=== PATIENT | female | born 1965 | race Caucasian/White ===

== ENCOUNTER 2018-08-17 08:52 | Emergency (ER) | payer MEDICAID ==
[~2018-08-17] VITALS: Ht 165.1 cm; Wt 79.0 kg
[~2018-08-17 08:52] MED LIST: ACET-2158 PO; CIPR500T4 PO; DICY10CA40 PO; HYDR-3498 PO; IBUP-1542 PO; METR-121 PO; NAPR-985 PO
[2018-08-17 08:58] VITALS: Ht 165.1 cm; Wt 79.0 kg
[2018-08-17] MEDS ORDERED: METF-849 PO (11:45)
[2018-08-17] MEDS ORDERED: GLIP5TAB13 PO (11:45)
[2018-08-17] MEDS ORDERED: KETOROLAC 15 MG INJ IV STA (12:29)
[2018-08-17] MEDS ORDERED: IBUP-1542 PO (12:31)
--- NOTE | 2018-08-17 12:31 | ERD ---
ER Documentation Chief Complaint Chief Complaint PT presents with intermittent CP radiates to neck and L arm X 3 days. HPI This is a 52-year-old female with a past medical history of diabetes who is presenting with left-sided neck and shoulder and chest pain, waxing and waning over the last 3 days. The patient reports increased exertion and heavy lifting recently. The patient does think that it could be related to a musculoskeletal etiology. It exacerbated by movement of the shoulder. It is improved with rest. She denies any diaphoresis. She denies any shortness of breath. She denies any nausea or vomiting. She denies any lightheadedness or dizziness. The patient denies feeling sick recently. The patient denies fever or chills. The patient has had no headache or vision changes. The patient does not endorse neck or back pain. The patient denies abdominal pain. The patient denies changes to bowel movements or urination. The patient has had no focal deficits. The patient has had no weakness or numbness or tingling to the face or extremities. ROS All systems reviewed and are negative except as per history of present illness. Medications Home Meds Reported Medications Metformin* (Glucophage*) 500 Mg Tab, 500 MG PO WITH BREAKFAST DINNE, #30 TAB 08/17/18 Glipizide* (Glipizide*) 5 Mg Tablet, 5 MG PO BID, TAB 08/17/18 Discontinued Reported Medications Naproxen* (Naprosyn*) 500 Mg Tablet, 500 MG PO DAILY, TAB 08/18/14 Discontinued Scripts Hydrocodone Bit-Acetaminophen* ([place]*) 5-325 Mg Tab, 1 TAB PO Q4H PRN for PAIN, #10 TAB Prov:LELA PATTERSON PA-C 10/22/15 Dicyclomine HCl (Dicyclomine HCl) 10 Mg Capsule, 10 MG PO QID, #30 CAP Prov:LELA PATTERSON PA-C 10/22/15 Ibuprofen* (Motrin*) 600 Mg Tab, 600 MG PO Q8H PRN for SEVERE PAIN LEVEL 7-10 for 10 Days, TAB TAKE WITH FOOD Prov:CARISSA RAMIREZ 01/16/14 Acetaminophen (TYLENOL 325 MG TAB) 325 Mg Tab, 650 MG PO Q4H PRN for PAIN AND OR ELEVATED TEMP for 14 Days, TAB Prov:CARISSA RAMIREZ F. 01/16/14 Metronidazole (Flagyl) 500 Mg Tab, 500 MG PO Q8 for 5 Days, TAB Prov:GEORGETTE RAMIREZD F. 01/16/14 Ciprofloxacin Hcl* (Ciprofloxacin Hcl*) 500 Mg Tablet, 500 MG PO BID for 5 Days, TAB Prov:GEORGETTE RAMIREZD F. 01/16/14 Allergies Allergies: Coded Allergies: No Known Drug Allergy (Verified Allergy, Mild, 08/17/18) PMhx/Soc History of Surgery: Yes (, cholecystectomy) Anesthesia Reaction: No Hx Neurological Disorder: No Hx Respiratory Disorders: No Hx Cardiac Disorders: Yes (Diabetes) Hx Psychiatric Problems: No Hx Miscellaneous Medical Probl: Yes (Gallstones) Hx Alcohol Use: No Hx Substance Use: No Hx Tobacco Use: No Smoking Status: Never smoker FmHx Family History: diabetes Physical Exam Vitals Vital Signs Date Temp Pulse Resp B/P (MAP) Pulse Ox O2 O2 Flow FiO2 Time Delivery Rate 08/17/18 98.3 79 18 143/66 97 08:58 (91) Physical Exam Const: No apparent distress, well-developed, well-nourished Head: Normocephalic, Atraumatic Eyes: Normal Conjunctiva. Extraocular movements intact. Pupils equal, round and reactive to light ENT: Normal External Ears, Nose and Mouth. Neck: Full range of motion. No meningismus. Resp: Clear to auscultation bilaterally, No wheezes, rales or rhonchi Cardio: Regular rate and rhythm. No murmurs, rubs or gallops Abd: Soft, non tender, non distended. Normal bowel sounds Skin: No petechiae or rashes Back: No midline tenderness. No CVA tenderness Ext: No cyanosis, or edema. Tenderness to range of motion of the left shoulder. Neur: Awake and alert, oriented 4. Cranial nerves intact. No facial droop. Normal strength, sensation and coordination. Psych: Normal Mood and Affect Result Diagram: 08/17/18 1043 08/17/18 1043 Results 24 hrs Laboratory Tests Test 08/17/18 10:43 White Blood Count 6.4 10^3/ul Red Blood Count 4.77 10^6/ul Hemoglobin 14.7 g/dl Hematocrit 43.9 % Mean Corpuscular Volume 92.0 fl Mean Corpuscular Hemoglobin 30.8 pg Mean Corpuscular Hemoglobin Concent 33.5 g/dl Red Cell Distribution Width 12.0 % Platelet Count 251 10^3/UL Mean Platelet Volume 10.4 fl Immature Granulocytes % 0.300 % Neutrophils % 53.5 % Lymphocytes % 40.0 % Monocytes % 5.3 % Eosinophils % 0.6 % Basophils % 0.3 % Nucleated Red Blood Cells % 0.0 /100WBC Immature Granulocytes # 0.020 10^3/ul Neutrophils # 3.4 10^3/ul Lymphocytes # 2.6 10^3/ul Monocytes # 0.3 10^3/ul Eosinophils # 0.0 10^3/ul Basophils # 0.0 10^3/ul Nucleated Red Blood Cells # 0.0 10^3/ul Sodium Level 140 mmol/L Potassium Level 4.0 mmol/L Chloride Level 102 mmol/L Carbon Dioxide Level 28 mmol/L Anion Gap 10 Blood Urea Nitrogen 13 mg/dl Creatinine 0.47 mg/dl Est Glomerular Filtrat Rate mL/min > 60 mL/min Glucose Level 185 mg/dl Calcium Level 9.3 mg/dl Troponin I < 0.012 ng/ml Procedures/MDM MDM The patient's presentation warrants further investigation. Previous medical records, if available, were reviewed. LABS The patient's laboratory testing was obtained and reviewed. No emergent treatment was required unless described below. CBC: No E/o systemic infection or severe anemia or thrombocytopenia Chemistry: No E/o severe acidosis or alkalosis or renal failure or diabetic ketoacidosis Troponin: No E/o acute ischemia EKG EKG read by me: Rate/Rhythm: Regular rate and rhythm at a rate of 68 bpm Intervals: Normal [place]: Normal Impression: No evidence of acute ischemia or arrhythmia IMAGING Imaging and Radiology interpretation reviewed. CXR FINDINGS: The heart and mediastinum are within normal limits. There is a possible 8 mm left lower lobe nodular opacity. There is no focal infiltrate . There is no pleural effusion or pneumothorax. IMPRESSION: 8 mm right lower lobe nodular opacity. Follow-up CT chest on a routine basis is recommended. Electronically viewed and signed by Betito Herrera MD, on 08/17/2018 11:16 TREATMENT/DISPOSITION The patient presents for chest wall pain and shoulder pain, worse with exertion and movement of the shoulder. I do suspect a musculoskeletal etiology of symptoms. That said, a cardiac work-up was completed. The patient's chest x- ray did reveal a pulmonary nodule that may be followed up in an outpatient setting. I believe this to be an incidental finding. It does not require emergent or inpatient work-up. The patient's chest xray does not reveal pneumonia or pneumothorax or pleural effusions or pulmonary edema. The patient does not have a widened mediastinum and does not have signs or symptoms concerning for thoracic aortic aneurysm or dissection. The patient does not have pneumomediastinum or signs concerning for esophageal tear or rupture. The patient has no clinical or radiographic signs of pericardial effusion or tamponade. The patient does not have pneumoperitoneum and I have decreased suspicion of viscus perforation as possible referred pain. The patient does not have a history of heart failure and I have low suspicion for this. The patient does not have a diagnosis of COPD and is not wheezing today. The patient is not tachypneic or hypoxic. The patient is breathing comfortably and without pleuritic pain. The patient is not on hormonal therapy. The patient has no history of clotting or bleeding disorders. The patient has no calf tenderness. The patient has had no hemoptysis. I have decreased suspicion for PE. The patient's troponin and EKG are reassuring. I have low suspicion for acute coronary syndrome. The patient's HEART score is equal to or less than 3. This stratifies the patient into the low risk (<1%) group for an major adverse cardiac event within the next 30 days. Shared decision making was enacted. The risks and benefits of admission and discharge were discussed with the patient and it was ultimately decided that the patient would be discharged with close outpatient follow up and evaluation for functional testing within 72 hours. The patient was treated with Toradol. DISCHARGE Upon reevaluation of the patient, symptoms have improved. No emergent diagnoses were identified. At this time, I feel that the patient stable for discharge. The patient was instructed to follow-up with a primary care physician in 1-3 days. The patient will be given strict precautions with which to return to the emergency department. Prescriptions: Ibuprofen The patient's blood pressure was elevated at greater than 120/80 while in the emergency department. The patient was otherwise stable with no evidence of hypertensive urgency or emergency. The patient does not require admission for blood pressure control. I have discussed with the patient the risks of hypertension. I have instructed the patient to return to the ER for any new or worsening symptoms including chest pain, shortness of breath, headache, blurred vision, confusion, nausea, vomiting or LOC. I have advised the patient to follow up with the primary care physician for outpatient monitoring and treatment for hypertension in 1-3 days. Disclaimer: Inadvertent spelling and grammatical errors are likely due to EHR/dictation software use and do not reflect on the overall quality of patient care. Note that the electronic time recorded on this note does not necessarily reflect the actual time of the patient encounter. Departure Diagnosis: Primary Impression: Chest wall pain Additional Impression: Left shoulder pain Chronicity: acute Qualified Codes: M25.512 - Pain in left shoulder Condition: Stable Patient Instructions: Chest Pain, Uncertain Cause, Shoulder Pain (Uncertain Cause) Additional Instructions: Thank you for for coming to [facility] for your care today. Please ask your nurse or provider if you have questions about your care today and do not leave until all your questions have been answered. Please use any medications given as directed and follow-up with your doctor (or the doctor you were referred to) in the next 1-3 days. If you do not have a primary care doctor you may follow up at the [facility] or [facility] (listed below). You may also use motrin and tylenol as needed for fever and/or pain unless instructed otherwise by your provider or nurse. Indications for more urgent follow-up have been discussed, but you may return to the Emergency Department at ANY time for any worrisome or worsening symptoms. If you have abdominal pain, please know that no test or exam you received is perfect and you should follow up within 8 hours for continued pain. If you had any imaging studies today, such as an X-Ray or CT Scan, these studies will be reviewed later by a radiologist. You will be called if there are important findings that were not identified today, so make sure the contact information you provided at registration is correct. If you received any narcotic pain control medicine today, such as Vicodin, Morphine or Dilaudid, your coordination and judgment may be affected for a number of hours. Please do not drive or operate heavy machinery, and you may want someone to assist you at home. If you were given a prescription for narcotic medication, be aware that it is very addictive- use sparingly and only if necessary. PLEASE SEEK FURTHER EVALUATION AND MANAGEMENT AT YOUR DOCTORS OFFICE WITHIN THE NEXT 1-3 DAYS. IT IS YOUR RESPONSIBILITY TO MAKE AN APPOINTMENT FOR FOLOW-UP CARE. IF YOU HAVE A PRIMARY DOCTOR, PLEASE CALL THEIR OFFICE TO SCHEDULE AN APPOINTME NT FOR FOLLOW UP. IF YOU DO NOT HAVE A PRIMARY DOCTOR YOU CAN CALL OUR PHYSICIAN REFERRAL HOTLINE AT IF YOU CAN NOT AFFORD TO SEE A PHYSICIAN YOU CAN CHOSE FROM THE FOLLOWING [facility] CLINICS: [facility] [address] [facility] [address] [facility] [facility] [address] [facility] [address] [facility] [address] [facility]. [facility]. [address] JESSE LATHAM MD August 17, 2018 12:31
[2018-08-17 12:39] VITALS: BP 119/70; PULSE 72; RESP 20
== END 2018-08-17 13:13 | disposition home or self-care (01) ==
LOC: E/R 08:52
DX: M25.512 Pain in left shoulder (principal); E11.9 Type 2 diabetes mellitus without complications; Z79.84 Long term (current) use of oral hypoglycemic drugs
CPT/HCPCS: 36415; 71045; 80048; 81025; 84484; 85025; 93005; 96374; J1885; Z7502